=== PATIENT | female | born 1975 | race Caucasian/White ===

== ENCOUNTER 2018-07-08 18:25 | Emergency (ER) | payer MEDICARE, BC ==
[2018-07-08 18:31] VITALS: BP 149/99; PULSE 107; RESP 16; TEMP 98.6; O2SAT 97
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
--- NOTE | 2018-07-09 19:14 | CARD ---
APPROVED REPORT Date of service: 07/09/2018 EKG Measurement Heart [id number] <Conclusion> Normal sinus rhythm Left ventricular hypertrophy Abnormal ECG
== END 2018-07-08 20:45 | disposition left against medical advice (07) ==
LOC: H.ER 18:25
DX: M54.2 Cervicalgia (principal); M79.602 Pain in left arm; Z86.73 Personal history of transient ischemic attack (TIA), and cerebral infarction without residual deficits; Z88.2 Allergy status to sulfonamides

== ENCOUNTER 2018-07-08 22:21 | Emergency (ER) | payer MEDICARE, OTHER ==
--- NOTE | 2018-07-09 03:20 | ED PDOC ---
HPI: Chest Pain Time Seen by Provider: 07/09/18 02:13 Chief Complaint (Nursing): Chest Pain Chief Complaint (Provider): chest pain History Per: Patient History/Exam Limitations: no limitations Onset/Duration Of Symptoms: Days (1 month), Waxing/Waning Current Symptoms Are (Timing): Still Present Additional Complaint(s): 42 y/o female presents for evaluation of intermittent left-sided chest pain x 1 month. Patient also reports left-sided neck pain radiating to left shoulder on-and-off since her stroke in 2014. Denies fever, headache, dizziness, extremity numbness/weakness, shortness of breath, palpitations, abdominal pain, leg pain/swelling, recent travel. Past Medical History Reviewed: Historical Data, Nursing Documentation, Vital Signs Vital Signs: Last Vital Signs Temp 98.3 F 07/09/18 00:08 Pulse 89 07/09/18 00:08 Resp 18 07/09/18 00:08 BP 151/92 H 07/09/18 00:08 Pulse Ox 96 07/09/18 00:08 - Medical History PMH: CVA - Family History Family History: States: No Known Family Hx - Allergies Allergies/Adverse Reactions: Allergies Allergy/AdvReac Type Severity Reaction Status Date / Time adhesive Allergy RASH Verified 07/08/18 18:30 Sulfa (Sulfonamide Allergy RASH Verified 07/08/18 18:30 Antibiotics) YEISON Risk Score for UA/NSTEMI - YEISON Risk Score Age > 64: NO 3 or more CAD Risk Factors: NO Known CAD (Stenosis greater than 50%): NO Aspirin use in past 7 days: NO Severe Angina: NO EKG ST changes greater than 0.5mm: NO Positive Cardiac Marker: NO YEISON Score: 0 Risk %: 5% Review of Systems ROS Statement: Except As Marked, All Systems Reviewed And Found Negative Cardiovascular: Positive for: Chest Pain Physical Exam - Reviewed Nursing Documentation Reviewed: Yes Vital Signs Reviewed: Yes - Physical Exam Appears: Positive for: Well, Non-toxic, No Acute Distress Head Exam: Positive for: ATRAUMATIC, NORMAL INSPECTION, NORMOCEPHALIC Skin: Positive for: Normal Color Eye Exam: Positive for: Normal appearance ENT: Positive for: Normal ENT Inspection Cardiovascular/Chest: Positive for: Regular Rate, Rhythm Respiratory: Positive for: Normal Breath Sounds Gastrointestinal/Abdominal: Positive for: Normal Exam Back: Positive for: Normal Inspection Extremity: Positive for: Normal ROM Neurologic/Psych: Positive for: Alert, Oriented (x3) - Laboratory Results Result Diagrams: 07/09/18 03:38 07/09/18 03:38 - ECG ECG: Positive for: Viewed By Me (reviewed by ED attending) ECG Rhythm: Positive for: Sinus Rhythm O2 Sat by Pulse Oximetry: 96 - Radiology X-Ray: Viewed By Me X-Ray Interpretation: No Acute Disease - Progress ED Course And Treament: labs, ekg, chest xray Disposition - Clinical Impression Clinical Impression: Chest pain - Patient ED Disposition Is Patient to be Admitted: No - Disposition Disposition Time: 05:00 Condition: STABLE Forms: [employer] (Upper Sorbian) Patient Signed Over To: Rusty Lemus Handoff Comments: pending repeat trop
[2018-07-09 03:44] LABS: BASO % 0.5 % (0.0-2.0); EOS # 0.1 K/uL (0.0-0.7); EOS % 2.3 % (0.0-4.0); HEMOGLOBIN 13.4 g/dL (12.0-16.0); LYMPH # 1.8 K/uL (1.0-4.3); LYMPH % 40.4 % (20.0-40.0); MEAN CELL VOLUME 91.4 fl (81.0-99.0); MEAN CORPUSCULAR HEMOGLOBIN 31.7 pg (27.0-31.0); MEAN CORPUSCULAR HGB CONC 34.6 g/dL (33.0-37.0); MEAN PLATELET VOLUME 11.7 fl (7.2-11.7); MONO # 0.5 K/uL (0.0-0.8); MONO % 10.8 % (0.0-10.0); NRBC % 0.2 % (0.0-0.0); RBC 4.22 Mil/uL (3.80-5.20); RED CELL DISTRIBUTION WIDTH 14.1 % (11.5-14.5); WHITE BLOOD COUNT 4.4 K/uL (4.8-10.8)
[2018-07-09 04:04] LABS: ALB/GLOB RATIO 1.1 (1.0-2.1); ALBUMIN 4.4 g/dL (3.5-5.0); ALT/SGPT 33 U/L (9-52); AST/SGOT 29 U/L (14-36); BLOOD UREA NITROGEN 10 mg/dl (7-17); CALCIUM 9.6 mg/dL (8.4-10.2); GFR NON-AFRICAN AMERICAN > 60
--- NOTE | 2018-07-09 05:23 | ED PDOC ---
- Laboratory Results Result Diagrams: 07/09/18 03:38 07/09/18 03:38 - ECG O2 Sat by Pulse Oximetry: 96 (RA) Pulse Ox Interpretation: Normal Medical Decision Making Medical Decision Makin Patient endorsed to me by Brenda Shea PA-C pending repeat of troponin. Scribe Attestation: Documented by Theo Buckley, acting as a scribe for Rusty Lemus MD. Provider Scribe Attestation: All medical record entries made by the Scribe were at my direction and personally dictated by me. I have reviewed the chart and agree that the record accurately reflects my personal performance of the history, physical exam, medi bony decision making, and the department course for this patient. I have also personally directed, reviewed, and agree with the discharge instructions and disposition. Disposition - Clinical Impression Clinical Impression: Atypical chest pain - POA Present On Arrival: None - Disposition Referrals: On License Of [facility] [Outside] [facility] [Outside] [facility] [Outside] Disposition: Transfer of Care Disposition Time: 07:00 Condition: STABLE Instructions: Chest Pain Forms: [employer] (Puerto Rican) Patient Signed Over To: Nirali Bowser
--- NOTE | 2018-07-09 08:24 | RAD ---
Date of service: 07/09/2018 HISTORY: chest pain COMPARISON: No prior. TECHNIQUE: Chest PA and lateral FINDINGS: LUNGS: No active pulmonary disease. PLEURA: No significant pleural effusion identified. No pneumothorax apparent. CARDIOVASCULAR: No aortic atherosclerotic calcification present OSSEOUS STRUCTURES: No significant abnormalities. VISUALIZED UPPER ABDOMEN: Normal. OTHER FINDINGS: None. IMPRESSION: No active disease.
--- NOTE | 2018-07-09 08:35 | ED PDOC ---
- Laboratory Results Result Diagrams: 07/09/18 03:38 07/09/18 03:38 - ECG O2 Sat by Pulse Oximetry: 98 Medical Decision Making Medical Decision Making: Received patient from Dr. Lemus. Patient presented with h/o chest pain for one month. Patient is pending repeat troponin. It is normal as the first. Will discharge with followup. Disposition Doctor Will See Patient In The: Office Counseled Patient/Family Regarding: Diagnosis, Need For Followup - Clinical Impression Clinical Impression: Atypical chest pain - POA Present On Arrival: None - Disposition Referrals: [facility] [Outside] [facility] [Outside] [facility] [Outside] Disposition: Routine/Home Disposition Time: 08:36 Condition: STABLE Instructions: Chest Pain Forms: [facility] (Bengali)
[2018-07-09 10:36] VITALS: BP 135/90; PULSE 81; RESP 18; TEMP 98
[2018-07-10 09:02] VITALS: O2SAT 96
== END 2018-07-09 09:30 | disposition home or self-care (01) ==
LOC: H.ER 22:21
DX: R07.89 Other chest pain (principal); Z86.73 Personal history of transient ischemic attack (TIA), and cerebral infarction without residual deficits

== ENCOUNTER 2018-11-20 20:09 | Emergency (ER) | payer MEDICARE, OTHER ==
[2018-11-20 20:37] VITALS: BP 139/98; PULSE 88; RESP 18; TEMP 97.9; O2SAT 99
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
--- NOTE | 2018-11-21 18:48 | CARD ---
APPROVED REPORT Date of service: 11/20/2018 EKG Measurement Heart [id number] <Conclusion> Normal sinus rhythm Normal Electrocardiogram
== END 2018-11-21 06:07 | disposition home or self-care (01) ==
LOC: H.ER 20:09
DX: R53.83 Other fatigue (principal); F43.20 Adjustment disorder, unspecified; M62.81 Muscle weakness (generalized); Z59.0 Homelessness; Z86.73 Personal history of transient ischemic attack (TIA), and cerebral infarction without residual deficits; Z88.2 Allergy status to sulfonamides; Z00.8 Encounter for other general examination

== ENCOUNTER 2018-11-21 09:51 | Emergency (ER) | payer MEDICARE, BC ==
[2018-11-21 10:21] VITALS: BMI 21.6
--- NOTE | 2018-11-21 13:48 | ED PDOC ---
HPI: Psych/Substance Abuse Time Seen by Provider: 11/21/18 10:54 Chief Complaint (Nursing): Psychiatric Evaluation Chief Complaint (Provider): Sadness Additional Complaint(s): Pt reports feeling sad recently, no suicidal ideation, no homicidal ideation. Pt was evaluated in this ED yesterday for fatigue and discharged. Pt undomiciled. Past Medical History Reviewed: Nursing Documentation Vital Signs: Last Vital Signs Temp 98.6 F 11/21/18 10:20 Pulse 84 11/21/18 10:20 Resp 20 11/21/18 10:20 BP 144/84 11/21/18 10:20 Pulse Ox 100 11/21/18 10:20 - Medical History PMH: CVA, Pulmonary Embolism Denies: Diabetes, Hepatitis, HIV, HTN, Chronic Kidney Disease, Seizures, Sexually Transmitted Disease - Family History Family History: States: Unknown Family Hx - Living Arrangements Living Arrangements: Other (Undomiciled) - Social History Current smoker - smoking cessation education provided: No Alcohol: None - Allergies Allergies/Adverse Reactions: Allergies Allergy/AdvReac Type Severity Reaction Status Date / Time adhesive Allergy RASH Verified 11/20/18 20:33 Sulfa (Sulfonamide Allergy RASH Verified 11/20/18 20:33 Antibiotics) Review of Systems Neurological: Negative for: Weakness, Numbness, Confusion, Seizures, Altered Mental Status, Headache, Dizziness Physical Exam - Reviewed Nursing Documentation Reviewed: Yes Vital Signs Reviewed: Yes - Physical Exam Appears: Positive for: Well, No Acute Distress Head Exam: Positive for: ATRAUMATIC, NORMAL INSPECTION Skin: Positive for: Normal Color, Warm, Dry Eye Exam: Positive for: Normal appearance, EOMI, PERRL Cardiovascular/Chest: Positive for: Regular Rate, Rhythm Respiratory: Positive for: Normal Breath Sounds Neurological/Psych: Positive for: Awake, Alert, Oriented, hr consultant II-XII. Negative for: Motor/Sensory Deficits - ECG O2 Sat by Pulse Oximetry: 100 Medical Decision Making Medical Decision Makin yo female with sad feeling. - Crisis evaluation Pt ate tray of food. [facility] and [facility] given. Disposition - Clinical Impression Clinical Impression: Adjustment disorder - Disposition Disposition: Routine/Home Disposition Time: 14:00 Condition: STABLE Additional Instructions: FOLLOW-UP WITH [facility] ADVISED. Instructions: Adjustment Disorder Forms: [employer] (Georgian)
[2018-11-21 14:16] VITALS: BP 145/92; PULSE 87; RESP 18; TEMP 99.4; O2SAT 99
== END 2018-11-21 14:16 | disposition home or self-care (01) ==
LOC: H.ER 09:51
DX: F43.20 Adjustment disorder, unspecified (principal); Z86.711 Personal history of pulmonary embolism; Z86.73 Personal history of transient ischemic attack (TIA), and cerebral infarction without residual deficits; Z88.2 Allergy status to sulfonamides; Z00.8 Encounter for other general examination